=== PATIENT | male | born 1970 | race Caucasian/White ===

== ENCOUNTER → 2016-12-24 | Outpatient (CLI) | payer BC ==
--- NOTE | 2016-12-24 14:32 | REP ---
LEFT WRIST, FOUR VIEWS: HISTORY: Pain. There is no acute fracture or dislocation. The joint spaces are normal in appearance. IMPRESSION: There is no acute fracture or dislocation. Signed by Gorge Byrd MD 12/24/2016 02:33 P
== END ==
LOC: M WUC 09:52
PROVIDERS: ATTEND Physician Assistant
DX: M25.532 Pain in left wrist (principal)

== ENCOUNTER → 2016-12-26 | Outpatient (REF) | payer BC ==
[2016-12-26 16:18] LABS: MEAN CORPUSCULAR HEMOGLOBIN 29.6 pg (27.0-33.0); MEAN CORPUSCULAR HGB CONC 33.6 g/dl (32.0-36.5); MEAN CORPUSCULAR VOLUME 88.1 fl (80.0-96.0); PLATELET COUNT, AUTOMATED 258 k/mm3 (150-450); RED CELL DISTRIBUTION WIDTH 12.8 % (11.5-14.5); WHITE BLOOD COUNT 11.3 K/mm3 (4.0-10.0)
[2016-12-26 16:43] LABS: EOSINOPHILS 1 % (0-5)
[2016-12-26 17:25] LABS: ERYTHROCYTE SEDIMENTATION RATE 11 mm/hr (0-15)
[2016-12-28 15:13] LABS: Lyme Disease IgG/IgM Antibodie <0.91 ISR (0.00-0.90); Lyme Disease IgM Ab Quantitati <0.80 index (0.00-0.79); SJOGREN'S ANTI SS-A <0.2 AI (0.0-0.9); SJOGREN'S ANTI SS-B 1.5 AI (0.0-0.9)
== END ==
LOC: M LABDRAW1 15:32
PROVIDERS: ATTEND Orthopaedic Surgery
DX: S63.502A Unspecified sprain of left wrist, initial encounter (principal); X58.XXXA Exposure to other specified factors, initial encounter; Y92.9 Unspecified place or not applicable; Y93.9 Activity, unspecified; Y99.9 Unspecified external cause status

== ENCOUNTER → 2017-04-08 | Outpatient (CLI) | payer BC ==
--- NOTE | 2017-04-09 02:56 | REP ---
Clinical: Pain . Technique: AP, lateral, bilateral oblique, and coned-down views. Findings: Alignment and lordosis is maintained. The vertebral bodies including transverse process and spinous processes are intact and without acute fracture / compression injury or subluxation. Mild/early moderate multilevel degenerative changes include endplate sclerosis with minimal disc space narrowing and subtle scattered marginal spurring. Hypertrophic facet changes at L5-S1 are appreciated and chronic spondylolysis without spondylolisthesis cannot be excluded. Impression: Moderate multilevel degenerative changes. Signed by Rg Martinez MD 04/09/2017 02:47 A
== END ==
LOC: M WUC 09:08
PROVIDERS: ATTEND Physician Assistant
DX: M51.37 Other intervertebral disc degeneration, lumbosacral region (principal)

== ENCOUNTER → 2017-10-13 | Outpatient (CLI) | payer BC | LOC: M WUC 10:29 | DX: M51.36 Other intervertebral disc degeneration, lumbar region (principal) ==

== ENCOUNTER → 2017-10-14 | Outpatient (CLI) | payer BC ==
[~2017-10-14] MED LIST: GASTROGRAFIN SOLUTION 30ML (Q9963) As Ordered; ISOVUE-370 76% 100ML VIAL (Q9967) As Ordered
== END ==
LOC: M RAD 14:56
DX: R22.9 Localized swelling, mass and lump, unspecified (principal); M54.5 Low back pain
CPT/HCPCS: Q9963

== ENCOUNTER 2017-11-21 06:11 | Day surgery (SDC) | payer BC ==
[2017-11-21] MEDS ORDERED: LIDOCAINE 1% MDV 20ML VIAL SQ (06:15)
[2017-11-21] MEDS ORDERED: LR 1,000 ML IV ×3 (06:15→08:45)
[2017-11-21] MEDS ORDERED: fentaNYL 100 MCG/2 ML INJECTION (J3010) As Ordered (07:05)
[2017-11-21] MEDS ORDERED: MIDAZOLAM INJ 2 MG/2 ML VIAL (J2250) As Ordered (07:05)
[2017-11-21] MEDS ORDERED: PROPOFOL 200 MG/20 ML VIAL As Ordered (07:08)
[2017-11-21] MEDS ORDERED: LIDOCAINE 2% INJ 100 MG/5 ML SDV (FOR ANES.) As Ordered (07:08)
[2017-11-21] MEDS: CEFAZOLIN SOD 1 GM in APPROPRIATE DILUENT 1 EA IV (07:38)
[2017-11-21] MEDS: LIDOCAINE W/EPINEPHRINE 1% 20ML VIAL As Ordered (07:48)
[2017-11-21] MEDS: BUPIVACAINE HCL 0.25% 10 ML VIAL As Ordered (07:48)
[2017-11-21] MEDS ORDERED: ONDANSETRON 4MG/2ML VIAL (J2405) As Ordered (07:53)
[2017-11-21] MEDS ORDERED: PERCOCET 5MG/325MG TAB PO (08:45)
[2017-11-21] MEDS ORDERED: MORPHINE 10 MG/ML 1ML VIAL (J2270) IV (08:45)
[2017-11-21] MEDS ORDERED: ONDANSETRON 4MG/2ML VIAL (J2405) IV (08:45)
[2017-11-21] MEDS ORDERED: MORPHINE 4 MG/ML 1ML VIAL (J2270) IV (09:00)
[2017-11-21] MEDS ORDERED: NORCO, ANEXSIA 5/325MG TABLET (HYDROcodone/ACETAMINOPHEN) PO (09:00)
== END 2017-11-21 09:10 | disposition home or self-care (01) ==
LOC: M SDC 06:11
DX: D17.1 Benign lipomatous neoplasm of skin and subcutaneous tissue of trunk (principal); G43.909 Migraine, unspecified, not intractable, without status migrainosus; [UNRECOGNIZED DIAGNOSIS CODE]
CPT/HCPCS: 21931

== ENCOUNTER → 2019-04-29 | Outpatient (REF) | payer BC ==
[~2019-04-29] MED LIST changes: +FIOR1CAP PO; -GASTROGRAFIN SOLUTION 30ML (Q9963) As Ordered; -ISOVUE-370 76% 100ML VIAL (Q9967) As Ordered
== END ==
LOC: M LAB REF 16:51
PROVIDERS: ATTEND Plastic Surgery Surgery of the Hand
DX: L90.5 Scar conditions and fibrosis of skin (principal)

== ENCOUNTER → 2019-05-26 | Outpatient (REF) | payer BC ==
[2019-05-27 08:06] LABS: LDL DIRECT 109 mg/dL (0-99)
== END ==
LOC: M LAB REF 12:19
PROVIDERS: ATTEND Family Medicine
DX: E78.5 Hyperlipidemia, unspecified (principal)

== ENCOUNTER → 2020-12-06 | Outpatient (CLI) | payer BC ==
--- NOTE | 2020-12-06 11:25 | REP ---
INDICATION: COUGH COMPARISON: 09/02/2012 TECHNIQUE: PA and lateral. FINDINGS: The mediastinum and cardiac silhouette are normal. The lung alanis are clear and without acute consolidation, effusion, or pneumothorax. The skeletal structures are intact and normal. IMPRESSION: No acute cardiopulmonary process. <Electronically signed by Rg Martinez > 12/06/20 [id number]
== END ==
LOC: M WUC 10:36
PROVIDERS: ATTEND Family Medicine
DX: R05 Cough (principal)

== ENCOUNTER → 2021-05-29 | Outpatient (CLI) | payer BC ==
--- NOTE | 2021-05-29 14:24 | REP ---
INDICATION: COUGH. COMPARISON: 12/06/2020 TECHNIQUE: PA and lateral views FINDINGS: The superior mediastinal structures are midline. The cardiac silhouette is unremarkable in size, shape, and position. The diaphragmatic surfaces of the lungs are regular, and the costophrenic angles are clear. The pulmonary alanis are clear. The imaged osseous structures are intact. IMPRESSION: There is no acute cardiopulmonary disease. <Electronically signed by Farrukh Quintero > 05/29/21 0858
== END ==
LOC: M WUC 13:59
PROVIDERS: ATTEND Family Medicine
DX: R05 Cough (principal)

== ENCOUNTER → 2021-06-28 | Outpatient (CLI) | payer BC ==
--- NOTE | 2021-06-29 16:26 | REP ---
INDICATION: DISORDERS OF DIAPHRAGM. COMPARISON: None TECHNIQUE: This procedure was performed by ODELL Jimenez, under the direct supervision of Dr. Rubio. Images were reviewed with Dr. Rubio prior to dictation. While the patient was standing in the AP and lateral position fluoroscopy was utilized while the patient did inspiration, expiration, and deep breathing techniques. FINDINGS: The right hemidiaphragm demonstrates normal amplitude and direction of motion with inspiration, expiration and deep breathing. Although it is somewhat elevated. The left hemidiaphragm demonstrates normal amplitude and direction of motion with inspiration, expiration, and deep breathing. IMPRESSION: The right hemidiaphragm demonstrates normal amplitude and direction of motion with inspiration, expiration and deep breathing, although it is somewhat elevated. The left hemidiaphragm demonstrates normal amplitude and direction of motion with inspiration, expiration and deep breathing. 0.5 minutes of fluoroscopy time was utilized for this procedure. Some fluoroscopic images are performed with last image hold technology. These images require no additional radiation. <Electronically signed by Danica Rose > 06/29/21 0944 <Electronically signed by Ronaldo Rubio > 06/29/21 [id number]
== END ==
LOC: M RAD 11:06
PROVIDERS: ATTEND Physician Assistant
DX: J98.6 Disorders of diaphragm (principal)

== ENCOUNTER → 2021-09-06 | Outpatient (CLI) | payer BC ==
[~2021-09-06] MED LIST changes: +METHACHOLINE KIT (J7674) INH ONE
--- NOTE | 2021-09-06 09:39 | PFTRPT ---
Site: [facility], [address] [place], [address] ID: [id number] Name: DMITRI BARRETT Visit Date: 09/06/2021 Second ID: [id number] Referring Doctor: MARJORIE Hayden, Warren Hugo Reviewing Doctor: Leroy Hawkins MD Mental Health Clinician: Crispin HUBBARD RRT Age: 51 : 1970 Sex: Male Race: Height: 70.00 Inches Weight: 205.00 Lbs BSA: 2.11 Order IDs: [id number] Requested Test(s): <RESP-PFT.METH CHAL> Diagnosis: R06.00 of albuterol for post bronchodilator. Review Status: Not Reviewed Pre-Bronch Post-Bronch Pred Actual %Pred Actual %Chng SPIROMETRY FVC (L) 5.09 3.45 67 3.40 -1 FEV1 (L) 3.96 2.88 72 2.80 -2 FEV1/FVC (%) 78 83 106 82 -1 FEF 25% (L/sec) 7.94 5.15 64 4.01 -22 FEF 50% (L/sec) 5.06 3.72 73 2.90 -21 FEF 75% (L/sec) 1.73 1.42 82 1.67 17 FEF 25-75% (L/sec) 3.52 3.17 89 2.67 -15 FEF Max (L/sec) 9.87 5.45 55 4.39 -19 FIVC (L) 3.38 3.16 -6 FIF 50% (L/sec) 5.01 4.80 95 3.11 -35 FIF Max (L/sec) 4.81 3.22 -33 Expiratory Time (sec) 5.25 4.02 -23 Back Extrap Vol (L) 0.09 0.07 -30 Time To FEFmax (sec) 0.101 0.089 -11
== END ==
LOC: M CARPUL 08:43
PROVIDERS: ATTEND Physician Assistant
DX: R06.00 Dyspnea, unspecified (principal)
CPT/HCPCS: 94070; J7674

== ENCOUNTER → 2021-09-15 | Outpatient (CLI) | payer BC ==
[~2021-09-15] MED LIST changes: +LOSA50TA28 PO; -METHACHOLINE KIT (J7674) INH ONE
== END ==
LOC: M LABSMTC 10:19
PROVIDERS: ATTEND Anesthesiology
DX: Z01.812 Encounter for preprocedural laboratory examination (principal); Z20.822 Contact with and (suspected) exposure to COVID-19

== ENCOUNTER → 2022-02-06 | Outpatient (CLI) | payer BC | LOC: M RAD 09:24 | PROVIDERS: ATTEND Internal Medicine Pulmonary Disease | DX: R94.2 Abnormal results of pulmonary function studies (principal); I70.0 Atherosclerosis of aorta; I25.10 Atherosclerotic heart disease of native coronary artery without angina pectoris ==

== ENCOUNTER → 2022-06-18 | Outpatient (CLI) | payer BC | LOC: M SLEEP HO 09:12 | PROVIDERS: ATTEND Internal Medicine Pulmonary Disease | DX: G47.33 Obstructive sleep apnea (adult) (pediatric) (principal) ==

== ENCOUNTER → 2023-07-28 | Outpatient (REF) | payer BC ==
[2023-07-29 13:05] LABS: FERRITIN 107.2 NG/ML (10.5-307.3)
[2023-07-29 13:06] LABS: FOLATE 16.8 NG/ML (>5.4)
== END ==
LOC: M LAB REF 11:26
PROVIDERS: ATTEND Family Medicine
DX: D64.9 Anemia, unspecified (principal)

== ENCOUNTER → 2025-05-23 | Outpatient (CLI) | payer BC | LOC: M WUC 10:41 | PROVIDERS: ATTEND Family Medicine | DX: M25.511 Pain in right shoulder (principal); M19.011 Primary osteoarthritis, right shoulder ==